=== PATIENT | male | born 1965 | race African-American/Black ===

== ENCOUNTER 2017-11-21 16:57 | Emergency (ER) | payer OTHER ==
[~2017-11-21] VITALS: Ht 175.3 cm; Wt 108.9 kg
[2017-11-21 17:29] VITALS: BP 144/83
[2017-11-21] MEDS ORDERED: HYDROcodone-ACET 10/325MG TAB PO ONE (19:30)
== END 2017-11-21 21:03 | disposition home or self-care (01) ==
LOC: ER 17:04
DX: S60.111A Contusion of right thumb with damage to nail, initial encounter (principal); X58.XXXA Exposure to other specified factors, initial encounter; Y93.89 Activity, other specified; Y99.8 Other external cause status; Y92.89 Other specified places as the place of occurrence of the external cause
CPT/HCPCS: 73130